=== PATIENT | female | born 1975 ===

== ENCOUNTER → 2023-04-03 | Outpatient (CLI) | payer OTHER ==
[2023-04-03 14:02] LABS: Creatinine Urine 83.7 mg/dL (27.00-270.00); Microalbumin, Urine Quant. 16.8 mg/L (0.000-20.000); Protein, Urine Quantitative 8.4 mg/dL (0.0-11.9)
== END ==
LOC: LAB 12:21 → LAB SHORT 12:21 → LAB EV 12:21
PROVIDERS: Internal Medicine Nephrology
DX: N18.1 Chronic kidney disease, stage 1 (principal); D63.1 Anemia in chronic kidney disease; N25.81 Secondary hyperparathyroidism of renal origin; E55.9 Vitamin D deficiency, unspecified; E78.00 Pure hypercholesterolemia, unspecified; R76.9 Abnormal immunological finding in serum, unspecified; R94.5 Abnormal results of liver function studies; R94.6 Abnormal results of thyroid function studies
CPT/HCPCS: 81050; 82043; 82570; 84156

== ENCOUNTER → 2024-02-08 | Outpatient (CLI) | payer OTHER | LOC: LAB 10:25 → LAB SHORT 10:25 | DX: R10.9 Unspecified abdominal pain (principal) | CPT/HCPCS: 87086 ==

== ENCOUNTER → 2024-08-05 | Outpatient (CLI) | payer OTHER | LOC: LAB SHORT 23:18 → LAB 23:18 | DX: N39.0 Urinary tract infection, site not specified (principal) | CPT/HCPCS: 87086 ==

== ENCOUNTER → 2024-08-29 | Outpatient (CLI) | payer OTHER | LOC: LAB 15:35 → LAB SHORT 15:35 | DX: N39.0 Urinary tract infection, site not specified (principal); R30.0 Dysuria | CPT/HCPCS: 87086 ==

== ENCOUNTER → 2024-12-03 | Outpatient (CLI) | payer OTHER | LOC: LAB SHORT 11:55 → LAB 11:55 | DX: N39.0 Urinary tract infection, site not specified (principal); R30.0 Dysuria; B37.31 Acute candidiasis of vulva and vagina; N92.6 Irregular menstruation, unspecified | CPT/HCPCS: 87086 ==